=== PATIENT | female | born 1945 | race Caucasian/White ===

== ENCOUNTER 2021-05-08 17:27 | Inpatient (IN) | payer BC, OTHER ==
[~2021-05-08] VITALS: Ht 167.6 cm; Wt 45.0 kg
--- NOTE | 2021-05-08 17:27 | NUR ---
ARBEN Cancino FROM [facility]. PT HAS A FEVER OF 103, CHILLS AND TACHY. PT HAS A BLOOD SUGAR OF 128. PT WAS SENT TO BED 2 AND PLACED ON PULSE OX AND ATTACHED TO MONITOR. WILL CONTINUE TO MONITOR.
[2021-05-08] MEDS ORDERED: IV NS 0.9% 1,000 ML BAG IV ONE (18:00)
[2021-05-08] MEDS ORDERED: ACETAMINOPHEN 650 MG/SUPP.RECT RC ONE ×2 (18:00→18:02)
--- NOTE | 2021-05-08 18:07 | NUR ---
MOVE SHEET SUBMITTED AND CALLED FOR BED.
[2021-05-08 18:09] LABS: BASOPHILS % (AUTO) 0.1 % (0.0-2.0); HEMATOCRIT 39 % (33-45); HEMOGLOBIN 12.8 g/dL (11.5-14.8); LYMPHOCYTES # (AUTO) 0.9 K/uL (0.8-4.8); LYMPHOCYTES % (AUTO) 14.6 % (20.0-44.0); MEAN CORPUSCULAR HGB CONC 33 g/dl (31.0-36.0); MEAN CORPUSCULAR VOLUME 95 fL (82-100); MONOCYTES # (AUTO) 0.2 K/uL (0.1-1.30); MONOCYTES % (AUTO) 3.8 % (2.0-12.0); NEUTROPHILS # (AUTO) 5.1 K/uL (1.8-8.9); NEUTROPHILS % (AUTO) 81.5 % (43.0-81.0); PLATELET COUNT (AUTO) 201 K/uL (150-450); WHITE BLOOD COUNT (AUTO) 6.3 K/uL (4.3-11.0)
[2021-05-08 18:40] LABS: ALANINE AMINOTRANSFERASE 39 U/L (12-78); ALKALINE PHOSPHATASE 55 U/L (46-116); ASPARTATE AMINOTRANSFERASE 50 U/L (15-37); BILIRUBIN,DIRECT 0.2 mg/dL (0.0-0.2); BILIRUBIN,TOTAL 0.7 mg/dL (0.2-1.0); CALCIUM, SERUM 8.4 mg/dL (8.5-10.1); CARBON DIOXIDE 21 mmol/L (21-32); CHLORIDE 104 mmol/L (98-107); CREATININE 1.3 mg/dL (0.6-1.3); GLUCOSE 115 mg/dL (74-106); POTASSIUM 4.5 mmol/L (3.5-5.1); SODIUM SERUM 142 mmol/L (136-145); TOTAL PROTEIN, SERUM 7.1 g/dL (6.4-8.2); UREA NITROGEN, BLOOD 28 mg/dL (7-18)
[2021-05-08] MEDS ORDERED: CEFTRIAXONE 1GM BAG (ER ONLY) 50 ML IV ONE ×2 (18:59→19:00)
[2021-05-08] MEDS ORDERED: IV NS 0.9% 500 ML BAG IV ONE (19:00)
[2021-05-08 19:38] LABS: BILIRUBIN,URINE NEGATIVE (NEGATIVE); COLOR,URINE DARK YELLOW (YELLOW); LEUKOCYTE ESTERASE ,URINE NEGATIVE (NEGATIVE); NITRITE, URINE NEGATIVE (NEGATIVE); PROTEIN,URINE 30 mg/dl (NEGATIVE); UGLUCOSE NEGATIVE (NEGATIVE); UROBILINOGEN,URINE 0.2 EU/dL (0.2)
[2021-05-08 19:56] LABS: RBC,URINE 0-2 /HPF (0-2)
[2021-05-08 19:57] LABS: BACTERIA,URINE Few /HPF (None Seen); MUCUS,URINE Moderate /LPF (None Seen); SQUAMOUS EPITHELIAL CELL,UR Few /HPF (None Seen)
--- NOTE | 2021-05-08 20:44 | NUR ---
SON IS AT BEDSIDE
--- NOTE | 2021-05-08 20:45 | NUR ---
[facility] ([facility]) [phone]
--- NOTE | 2021-05-08 21:29 | NUR ---
CALLED [facility], PAGED DR HERNANDEZ
--- NOTE | 2021-05-08 21:57 | NUR ---
REPORT GIVEN TO ALBARO
--- NOTE | 2021-05-08 21:58 | NUR ---
TRANSFERRING PT TO 118-2
[2021-05-08 22:30] VITALS: BP 149/86
--- NOTE | 2021-05-08 22:30 | NUR ---
INDEPENDENT BEAUTY CONSULTANTPARALEGAL INTERNSHIP NOTES RECEIVED FROM ER THIS 75 Y.O. FEMALE,NON VERBAL,CONTRACTED BOTH LOWER EXTREMITIES,O2 UN USED AT 2L/NC TO KEEP O2 SAT ABOVE 90%,NOTED REDNESS ON SACRAL AREA,BRUISING ON RIGHT LOWER ARM,WITH SALINE LOCK RIGHT AC INTACT AND PATENT,LEFT WRIST SALINE LOCK INTACT AND PATENT.EVENING CARE RENDERED,REPOSITION TO COMFORT,WILL CONTINUE TO MONITOR STATUS.
[2021-05-08] MEDS ORDERED: ENOXAPARIN SODIUM 40 MG/0.4 ML DISP.SYRIN SQ SCH (23:00)
[2021-05-08] MEDS ORDERED: Z GUARD REMEDY 2 OZ OINT TP PRN (23:00)
[2021-05-08] MEDS ORDERED: ONDANSETRON HCL/PF 4 MG/2 ML VIAL IVP PRN (23:00)
[2021-05-08] MEDS ORDERED: MORPHINE SULFATE INJ 2 MG/ML DISP.SYRIN IV PRN (23:00)
[2021-05-08] MEDS ORDERED: DEXTROSE 50%-WATER 50 ML DISP.SYRIN IV PRN (23:00)
[2021-05-08] MEDS ORDERED: ACETAMINOPHEN 650 MG/SUPP.RECT RC PRN (23:00)
[2021-05-08] MEDS ORDERED: ENOXAPARIN SODIUM 30 MG/0.3 ML DISP.SYRIN SQ SCH (23:17)
[2021-05-08] MEDS ORDERED: VANCOMYCIN HCL 0.75 GM in IV D5W 250 ML IV ONE (23:30)
--- NOTE | 2021-05-08 23:30 | NUR ---
MERCHANDISE SUPPORT ASSOCIATE NOTES STARTED ON VANCOMYCIN 0.75GM IV ORDERED.
[2021-05-08] MEDS: IV D5/ 0.9% NACL 1,000 ML IV PRN (23:46)
--- NOTE | 2021-05-08 23:46 | NUR ---
MUSIC THERAPIST [employer] NOTES STARTED ON IVF D5NS AT 75ML/HR RATE,INFUSING ON RIGHT AC VIA IV PUMP ON RIGHT AC.
[2021-05-09] MEDS ORDERED: MEROPENEM 500 MG in IV NS 0.9% 50 ML IV ONE
[2021-05-09] MEDS ORDERED: MEROPENEM 500 MG VIAL IV ONE (00:05)
[2021-05-09] MEDS ORDERED: VANCOMYCIN 1 GM VIAL ONE (00:08)
--- NOTE | 2021-05-09 00:08 | NUR ---
VIAL GAUGER NOTES STARTED ON MERREM 500MG IV ORDERED.
[2021-05-09] MEDS: BLOOD SUGAR DIAGNOSTIC 1 EACH STRIP IN SCH ×5 (00:23→17:21)
--- NOTE | 2021-05-09 00:30 | NUR ---
RESIDENCE MANAGER NOTES GOT ORDER FROM DR HERNANDEZ,PATIENT IS DNR STATUS,WITH POLST ON CHART
--- NOTE | 2021-05-09 00:30 | NUR ---
MIDDLEWARE ARCHITECT NOTES ACCU-CHECK BLOOD SUGAR CHECK 108,NO INSULIN COVERAGE.
[2021-05-09 04:00] VITALS: BP 135/73
--- NOTE | 2021-05-09 05:58 | NUR ---
DRILL RIG OPERATOR HELPER NOTES ACCU-CHECK BLOOD SUGAR CHECK 147,2 UNITS HUMULIN R HELD,NPO STATUS.
--- NOTE | 2021-05-09 06:32 | NUR ---
DIRECTIONAL DRILL OPERATOR NOTES ASLLEP,AROUSABLE TO VERBAL STIMULI,NO SOB NOTED,ALL MEDS HIBENIN NO ACUTE DISTRESS.
[2021-05-09 06:54] LABS: BASOPHILS % (AUTO) 0.3 % (0.0-2.0); EOSINOPHILS % (AUTO) 0.1 % (0.0-6.0); HEMATOCRIT 31 % (33-45); HEMOGLOBIN 10.4 g/dL (11.5-14.8); LYMPHOCYTES # (AUTO) 1.1 K/uL (0.8-4.8); LYMPHOCYTES % (AUTO) 18.4 % (20.0-44.0); MEAN CORPUSCULAR HGB CONC 34 g/dl (31.0-36.0); MEAN CORPUSCULAR VOLUME 95 fL (82-100); MONOCYTES # (AUTO) 0.3 K/uL (0.1-1.30); MONOCYTES % (AUTO) 4.4 % (2.0-12.0); NEUTROPHILS # (AUTO) 4.7 K/uL (1.8-8.9); NEUTROPHILS % (AUTO) 76.8 % (43.0-81.0); PLATELET COUNT (AUTO) 170 K/uL (150-450); RED BLOOD CELL COUNT(AUTO) 3.22 MIL/uL (4.0-5.2); WHITE BLOOD COUNT (AUTO) 6.1 K/uL (4.3-11.0)
[2021-05-09 07:15] LABS: THYROID STIMULATING HORMONE 2.809 uIU/mL (0.358-3.74)
[2021-05-09 07:29] LABS: CALCIUM, SERUM 8.2 mg/dL (8.5-10.1); CREATININE 0.9 mg/dL (0.6-1.3); MAGNESIUM 2.3 mg/dL (1.8-2.4); PHOSPHORUS 3.7 mg/dL (2.5-4.9); POTASSIUM 4.2 mmol/L (3.5-5.1)
[2021-05-09] MEDS ORDERED: ACET-868 PO (07:58)
[2021-05-09] MEDS ORDERED: QUET25TA PO (07:58)
[2021-05-09] MEDS ORDERED: DIVA125C2 PO (07:58)
[2021-05-09] MEDS ORDERED: DONE10TA44 PO (07:58)
[2021-05-09] MEDS ORDERED: MELA3TAB41 PO (07:58)
[2021-05-09] MEDS ORDERED: ATOR10TA PO (07:58)
[2021-05-09] MEDS ORDERED: MEGE400O4 PO (07:58)
[2021-05-09] MEDS ORDERED: POLY15DR40 EACHEYE (07:58)
[2021-05-09] MEDS ORDERED: ALEN70TA80 PO (07:58)
[2021-05-09] MEDS ORDERED: APIX5TAB PO (07:58)
[2021-05-09] MEDS ORDERED: CALC500T63 PO (07:58)
[2021-05-09] MEDS ORDERED: ACET-2605 PO (07:58)
[2021-05-09] MEDS ORDERED: AMIN30LI2 PO (07:58)
[2021-05-09] MEDS ORDERED: VALS80TA2 PO (07:58)
[2021-05-09 08:00] VITALS: BP 126/73
[2021-05-09] MEDS ORDERED: ALENDRONATE 70 MG TABLET PO SCH ×2 (09:00→14:00)
[2021-05-09] MEDS: PANTOPRAZOLE 40 MG VIAL IV SCH (09:00)
[2021-05-09] MEDS: MEROPENEM 500 MG in IV NS 0.9% 50 ML IV SCH (11:51)
[2021-05-09 12:00] VITALS: BP 93/66
[2021-05-09] MEDS ORDERED: MEROPENEM 500 MG in IV NS 0.9% 50 ML IV SCH (13:00)
[2021-05-09] MEDS: APIXABAN 5 MG TABLET PO SCH (17:00)
[2021-05-09] MEDS: MEGESTROL ACETATE SUSP 400 MG/10 ML UDC PO SCH (17:00)
[2021-05-09] MEDS: PROSOURCE / PROSTAT (PYXIS) 30 ML UDC PO SCH (17:00)
[2021-05-09] MEDS: POLYVINYL ALCOHOL 15 ML BOTTLE OP SCH (17:00)
[2021-05-09] MEDS: VANCOMYCIN 500 MG in IV D5W 100ml IV SCH (17:00)
[2021-05-09] MEDS: CALCIUM CARBONATE 500 MG TAB.CHEW PO SCH (17:00)
[2021-05-09] MEDS: IV D5/ 0.9% NACL 1,000 ML IV PRN (17:06)
[2021-05-09 18:59] VITALS: BP 93/66
--- NOTE | 2021-05-09 19:34 | NUR ---
RN CLOSING NOTE PATIENT REMAINS STABLE, AFEBRILE AND NOT IN RESPIRATORY DISTRESS, AWAITING FOR ST FOR SWALLOW EVAL. DUE MEDS GIVEN AND TOLERATED WELL. MORNING AND EVENING CARE DONE. CONTINUES ON O2 VIA NC @ 2L WITH 02 SAT OF 94%. WILL CONTINUE TO MONITOR. CONTINUES ON IVF D5 NS AND TOLERATED WELL.
[2021-05-09 20:00] VITALS: BP_SYST 121; BP_SYST 93; BP_DIAS 66; BP_DIAS 78
[2021-05-09] MEDS: DIVALPROEX SODIUM 125 MG CAP.SPRINK PO SCH (21:00)
[2021-05-09] MEDS: QUETIAPINE FUMARATE 25 MG TABLET PO SCH (22:00)
[2021-05-09] MEDS: ATORVASTATIN 10 MG TABLET PO SCH (22:00)
[2021-05-09] MEDS: DONEPEZIL 5 MG TABLET PO SCH (22:00)
[2021-05-09] MEDS ORDERED: Medication Not On Formulary EA (Melatonin 3 MG) PO SCH (22:00)
[2021-05-10] VITALS: BP 98/68
[2021-05-10] MEDS: MEROPENEM 500 MG in IV NS 0.9% 50 ML IV SCH ×3 (00:30→23:33)
[2021-05-10] MEDS: BLOOD SUGAR DIAGNOSTIC 1 EACH STRIP IN SCH ×4 (00:36→18:05)
[2021-05-10] MEDS: INSULIN REGULAR, HUMAN 100 UNIT/ML 3 ML VIAL SQ PRN ×3 (00:37→23:42)
[2021-05-10 04:00] VITALS: BP 144/70
--- NOTE | 2021-05-10 07:10 | NUR ---
RN CLOSING NOTE PATIENT IN BED REMAINS STABLE, AFEBRILE AND NOT IN SOB/ACUTE RESPIRATORY DISTRESS, ON O2 VIA NC @ 2L WITH OPTIMAL 02 SAT LEVEL, NPO, ST EVALUATION TODAY FOR PROPER DIET, CONTINUES ON IVF D5 NS AND TOLERATED WELL, NO COVERAGE PER SLIDING SCALE, 110 AND 112 BLOOD SUGAR LEVELS, WILL ENDORSE CONTINUITY OF CARE TO ONCOMING NURSE.. ``
[2021-05-10 07:42] LABS: BASOPHILS % (AUTO) 0.2 % (0.0-2.0); EOSINOPHILS % (AUTO) 0.1 % (0.0-6.0); HEMATOCRIT 29 % (33-45); HEMOGLOBIN 9.8 g/dL (11.5-14.8); LYMPHOCYTES # (AUTO) 0.9 K/uL (0.8-4.8); LYMPHOCYTES % (AUTO) 16.9 % (20.0-44.0); MEAN CORPUSCULAR HGB CONC 34 g/dl (31.0-36.0); MEAN CORPUSCULAR VOLUME 94 fL (82-100); MONOCYTES # (AUTO) 0.4 K/uL (0.1-1.30); MONOCYTES % (AUTO) 6.5 % (2.0-12.0); NEUTROPHILS # (AUTO) 4.3 K/uL (1.8-8.9); NEUTROPHILS % (AUTO) 76.3 % (43.0-81.0); PLATELET COUNT (AUTO) 172 K/uL (150-450); RED BLOOD CELL COUNT(AUTO) 3.06 MIL/uL (4.0-5.2); WHITE BLOOD COUNT (AUTO) 5.6 K/uL (4.3-11.0)
--- NOTE | 2021-05-10 07:46 | NUR ---
RN OPENING NOTE RECEIVE REPORT FROM OUT GOING NURSE. PATIENT IN STABLE CONDITION AT TIME OF REPORT. a/O X1. PATIENT IS NPO UNTIL ST IS DONE. WILL FOLLOW UP WITH AM LABS. PROPER ISOLATION PRECAUTION IN PLACE. ALL SAFETY MEASURE IN PLACE. BED ON LOWEST POSITION WITH HOB ELEVATED WITH 3 SIDE RAIL UP. CALL LIGHT WITHIN REACH. WILL CONTINUE TO MONITOR.
[2021-05-10 08:00] VITALS: BP 146/79
[2021-05-10] MEDS: MEGESTROL ACETATE SUSP 400 MG/10 ML UDC PO SCH ×2 (08:42→16:24)
[2021-05-10] MEDS: VALSARTAN 80 MG TABLET PO SCH (08:42)
[2021-05-10] MEDS: POLYVINYL ALCOHOL 15 ML BOTTLE OP SCH ×3 (08:42→16:25)
[2021-05-10] MEDS: DIVALPROEX SODIUM 125 MG CAP.SPRINK PO SCH ×2 (08:43→21:33)
[2021-05-10] MEDS: CALCIUM CARBONATE 500 MG TAB.CHEW PO SCH ×3 (08:43→16:23)
[2021-05-10] MEDS: PANTOPRAZOLE 40 MG VIAL IV SCH (08:43)
[2021-05-10 08:44] LABS: CREATININE 0.9 mg/dL (0.6-1.3); PHOSPHORUS 2.8 mg/dL (2.5-4.9)
[2021-05-10] MEDS: APIXABAN 5 MG TABLET PO SCH ×2 (08:46→16:24)
[2021-05-10] MEDS: PROSOURCE / PROSTAT (PYXIS) 30 ML UDC PO SCH ×2 (09:00→17:56)
[2021-05-10] MEDS: VANCOMYCIN 500 MG in IV D5W 100ml IV SCH (10:08)
[2021-05-10] MEDS: IV D5/ 0.9% NACL 1,000 ML IV PRN (10:08)
--- NOTE | 2021-05-10 11:16 | NUR ---
RN NOTE PATIENT PULL OUT IV ON LEFT WRIST. PRESSURE DRESSING WAS PLACED.
[2021-05-10 12:00] VITALS: BP 145/68
[2021-05-10] MEDS: ENSURE ENLIVE 237 ML LIQUID (VANILLA) PO SCH ×2 (12:40→17:44)
[2021-05-10 16:00] VITALS: BP 117/72
--- NOTE | 2021-05-10 18:19 | NUR ---
RN CLOSING NOTE PATIENT REMAIN IN STABLE CONDITION WITH NO SIGN OF DISTRESS THROUGH OUT SHIFT. ON ROOM AIR WITH O2 SAT 95% AND ABOVE. SWALLOW EVALUATION WAS DONE BY SPEECH THERAPIST. PUREED DIET AND THICKENER WAS RECOMMENDED. DIET ORDER IN PLACE. CRUSH MEDICATIONS AND GIVE WITH APPLE SAUCE. RECEIVING IV HYDRATION WITH D5 NS @75ML/HR. PATIENT PULL OUT IV ON LEFT HAND. PRESSURE DRESSING WAS APPLY. FELIPE ISOLATION PRECAUTION IN PLACE. ALL SAFETY MEASURE IN PLACE. BED ON THE LOWEST POSITION WITH HOB ELEVATED AND 3 SIDE RAIL UP. CALL LIGHT WITHIN REACH. WILL CONTINUE TO MONITOR AND GIVE REPORT TO ON COMING NURSE.
--- NOTE | 2021-05-10 19:35 | NUR ---
1934 Report received from PATRICK Kendrick for transfer of care with questions answered.
[2021-05-10 20:00] VITALS: BP 155/85
[2021-05-10] MEDS: DONEPEZIL 5 MG TABLET PO SCH (21:35)
[2021-05-10] MEDS: ATORVASTATIN 10 MG TABLET PO SCH (21:36)
[2021-05-10] MEDS: QUETIAPINE FUMARATE 25 MG TABLET PO SCH (21:37)
--- NOTE | 2021-05-10 23:40 | NUR ---
2340 BS check done 124mg/dl no coverage given per sliding scale.
[2021-05-11] VITALS (7 sets, daily range): BP systolic 155–166; BP diastolic 36–88
--- NOTE | 2021-05-11 03:00 | NUR ---
0300 Patient awake and not in any distress. Cont. to tolerate O2 at 2L per NC. Turned and repositioned for skin management and comfort. Kept clean and dry. Call light placed within reach.
[2021-05-11] MEDS: IV D5/ 0.9% NACL 1,000 ML IV PRN ×2 (03:29→23:56)
[2021-05-11] MEDS: VANCOMYCIN 500 MG in IV D5W 100ml IV SCH (04:49)
[2021-05-11 04:56] LABS: BASOPHILS % (AUTO) 0.3 % (0.0-2.0); EOSINOPHILS % (AUTO) 0.1 % (0.0-6.0); HEMATOCRIT 27 % (33-45); LYMPHOCYTES # (AUTO) 1.3 K/uL (0.8-4.8); LYMPHOCYTES % (AUTO) 21.5 % (20.0-44.0); MEAN CORPUSCULAR HGB CONC 34 g/dl (31.0-36.0); MEAN CORPUSCULAR VOLUME 93 fL (82-100); MONOCYTES # (AUTO) 0.4 K/uL (0.1-1.30); MONOCYTES % (AUTO) 7.4 % (2.0-12.0); NEUTROPHILS # (AUTO) 4.1 K/uL (1.8-8.9); NEUTROPHILS % (AUTO) 70.7 % (43.0-81.0); PLATELET COUNT (AUTO) 191 K/uL (150-450); RED BLOOD CELL COUNT(AUTO) 2.85 MIL/uL (4.0-5.2); WHITE BLOOD COUNT (AUTO) 5.8 K/uL (4.3-11.0)
[2021-05-11 05:07] LABS: CALCIUM, SERUM 7.5 mg/dL (8.5-10.1); CREATININE 0.8 mg/dL (0.6-1.3); PHOSPHORUS 2.8 mg/dL (2.5-4.9); POTASSIUM 3.1 mmol/L (3.5-5.1)
[2021-05-11] MEDS: BLOOD SUGAR DIAGNOSTIC 1 EACH STRIP IN SCH ×4 (06:12→18:03)
[2021-05-11] MEDS: INSULIN REGULAR, HUMAN 100 UNIT/ML 3 ML VIAL SQ PRN ×2 (06:12→12:02)
--- NOTE | 2021-05-11 06:13 | NUR ---
Blood Sugar check done at this time 113 mg/dl no coverage given per sliding scale.
--- NOTE | 2021-05-11 06:20 | NUR ---
0620 AM care rendered. Linens changed. Large BM soft in consistency noted. Good pericare rendered. Turned and repositioned for skin management and comfort. Call light placed within reach.
--- NOTE | 2021-05-11 07:16 | NUR ---
NURSE OPENING NOTE PATIENT IN STABLE CONDITION AT TIME OF REPORT FROM WELL DIGGER NURSE. PATIENT RECEIVING 3L OF OXYGEN VIA NC. O2 SAT 95%. RECEIVING D5 NS @55ML/HR. WILL FOLLOW UP WITH AM LABS AND DOCTORS ORDERS. PROPER PRECAUTION IN PLACE. ALL SAFETY MEASURE IN PLACE. BED ON LOWEST POSITION WITH HOB ELEVATED AND 3 SIDE RAIL UP. CALL LIGHT WITHIN REACH. WILL CONTINUE TO MONITOR.
[2021-05-11] MEDS: MEGESTROL ACETATE SUSP 400 MG/10 ML UDC PO SCH ×2 (08:38→16:12)
[2021-05-11] MEDS: CALCIUM CARBONATE 500 MG TAB.CHEW PO SCH ×3 (08:38→16:13)
[2021-05-11] MEDS: DIVALPROEX SODIUM 125 MG CAP.SPRINK PO SCH ×2 (08:39→21:58)
[2021-05-11] MEDS: VALSARTAN 80 MG TABLET PO SCH (08:39)
[2021-05-11] MEDS: PANTOPRAZOLE 40 MG TABLET.DR PO SCH (08:43)
[2021-05-11] MEDS: APIXABAN 5 MG TABLET PO SCH ×2 (08:46→16:15)
[2021-05-11] MEDS: POLYVINYL ALCOHOL 15 ML BOTTLE OP SCH ×3 (08:48→16:14)
[2021-05-11] MEDS: ENSURE ENLIVE 237 ML LIQUID (VANILLA) PO SCH ×3 (08:49→18:04)
[2021-05-11] MEDS: PROSOURCE / PROSTAT (PYXIS) 30 ML UDC PO SCH ×2 (08:54→16:13)
[2021-05-11] MEDS ORDERED: POTASSIUM CHLORIDE 20 MEQ TAB.PRT.SR PO SCH (09:30)
[2021-05-11] MEDS: MEROPENEM 500 MG in IV NS 0.9% 50 ML IV SCH (11:15)
--- NOTE | 2021-05-11 13:14 | NUR ---
per [facility] covid negative pcr.
--- NOTE | 2021-05-11 18:52 | NUR ---
RN CLOSING NOTE PATIENT REMAIN IN STABLE CONDITION WITH NO SIGN OF DISTRESS TROUGH OUT SHIFT. REMAIN ON OXYGEN VIA NC AT 3L/MIN. O2 SAT 95% AND ABOVE. PATIENT IS NONVERBAL. CONTINUE PUREE DIET WITH THICKENER IN FLUID. CRUSH MEDS AND GIVE WITH APPLE SAUCE. TOOK ALL MEDICATIONS DURING SHIFT. RECEIVING IV HYDRATION WITH D5NS @75ML/HR. PCR RESULT IS NEGATIVE. PATIENT TURN AND REPOSITIONED PER PROTOCOL. PROPER INSOLATION PRECAUTION IN PLACE. ALL SAFETY MEASURE IN PLACE. BED ON LOWEST POSITION WITH HOB ELEVATED AND 3 SIDE RAIL UP. CALL LIGHT WITHIN REACH. WILL CONTINUE TO MONITOR AND GIVE REPORT TO SINGLE PASS SOIL STABILIZER OPERATOR NURSE.
--- NOTE | 2021-05-11 19:45 | NUR ---
RN CLOSING NOTE PATIENT IN BED RESTING WITH NO SIGNS OF DISTRESS OR PAIN, PATIENT IS NONVERBAL.PATIENT ON 4L NASAL CANULA, WITH NO RESPIRATORY DISTRESS OR LABORED BREATHING. A/O X 1 TO NAME. IV IN R AC 18 GAUGE, PATENT AND INTACT, FLUSHED. ALL ENVIRONMENTAL MEASURES TAKEN, BED IN LOW POSITION, CALL LIGHT IN REACH, HOB ELEVATED, 3 SIDE RAILS UP. Addendum: 05/12/21 at 0700 by Jessie Blevins RN RN OPENING NOTES - ( NOT CLOSING NOTES)
[2021-05-11] MEDS: DONEPEZIL 5 MG TABLET PO SCH (21:51)
[2021-05-11] MEDS: ATORVASTATIN 10 MG TABLET PO SCH (21:58)
[2021-05-11] MEDS: QUETIAPINE FUMARATE 25 MG TABLET PO SCH (21:58)
[2021-05-12] VITALS: BP 135/85
[2021-05-12] MEDS: MEROPENEM 500 MG in IV NS 0.9% 50 ML IV SCH ×2 (00:45→11:36)
[2021-05-12] MEDS: BLOOD SUGAR DIAGNOSTIC 1 EACH STRIP IN SCH ×3 (00:55→11:55)
[2021-05-12] MEDS: INSULIN REGULAR, HUMAN 100 UNIT/ML 3 ML VIAL SQ PRN ×3 (00:56→11:57)
[2021-05-12 04:00] VITALS: BP 142/83
--- NOTE | 2021-05-12 06:00 | NUR ---
RN CLOSING NOTE PATIENT REMAIN IN STABLE CONDITION WITH NO SIGN OF DISTRESS THROUGHOUT THE SHIFT. REMAIN ON OXYGEN VIA NC AT 3L/MIN. O2 SAT 95% AND ABOVE. PATIENT IS NONVERBAL. CONTINUE PUREE DIET WITH THICKENER IN FLUID. CRUSH MEDS AND GIVE WITH APPLE SAUCE. TOOK ALL MEDICATIONS DURING SHIFT. RECEIVING IV HYDRATION WITH D5NS @75ML/HR. PCR RESULT IS NEGATIVE. PATIENT TURN AND REPOSITIONED PER PROTOCOL. PROPER INSOLATION PRECAUTION IN PLACE. ALL SAFETY MEASURE IN PLACE. BED ON LOWEST POSITION WITH HOB ELEVATED AND 3 SIDE RAIL UP.ACCU CHECKS DONE ORDERED, NO INSULIN ADMINISTERED. WILL ENDORSE PATIENT CARE TO ONCOMING AM SHIFT.
--- NOTE | 2021-05-12 07:20 | NUR ---
RN NOTES, RECEIVED PATIENT FOR CONTINUATION OF CARE, PATIENT ON 2LPM VIA NC WITH OPTIMAL O2 SAT LEVEL, NSR ON TELEMONITOR, PATIENT AWAKE, UNABLE TO FOLLOW COMMANDS, NON VERBAL, PATIENT WITH RIGHT AC IV LINE DISLODGED, AND NOTED WITH SWOLLEN ARM, ELEVATED EXTREMITY, WITH CONTINUE TO MONITOR CLOSELY.
[2021-05-12] MEDS: PANTOPRAZOLE 40 MG TABLET.DR PO SCH (07:34)
[2021-05-12 08:00] VITALS: BP 152/96
[2021-05-12 08:12] LABS: BASOPHILS % (AUTO) 0.3 % (0.0-2.0); EOSINOPHILS % (AUTO) 0.6 % (0.0-6.0); HEMATOCRIT 27 % (33-45); HEMOGLOBIN 9.1 g/dL (11.5-14.8); LYMPHOCYTES # (AUTO) 1.1 K/uL (0.8-4.8); MEAN CORPUSCULAR HGB CONC 34 g/dl (31.0-36.0); MEAN CORPUSCULAR VOLUME 94 fL (82-100); MONOCYTES # (AUTO) 0.4 K/uL (0.1-1.30); MONOCYTES % (AUTO) 9.7 % (2.0-12.0); NEUTROPHILS # (AUTO) 2.6 K/uL (1.8-8.9); NEUTROPHILS % (AUTO) 62.4 % (43.0-81.0); PLATELET COUNT (AUTO) 227 K/uL (150-450); RED BLOOD CELL COUNT(AUTO) 2.87 MIL/uL (4.0-5.2); WHITE BLOOD COUNT (AUTO) 4.2 K/uL (4.3-11.0)
[2021-05-12 08:25] LABS: CALCIUM, SERUM 7.4 mg/dL (8.5-10.1); CREATININE 0.6 mg/dL (0.6-1.3); MAGNESIUM 2.1 mg/dL (1.8-2.4); PHOSPHORUS 2.8 mg/dL (2.5-4.9); POTASSIUM 3.2 mmol/L (3.5-5.1)
[2021-05-12] MEDS: DIVALPROEX SODIUM 125 MG CAP.SPRINK PO SCH (09:27)
[2021-05-12] MEDS: MEGESTROL ACETATE SUSP 400 MG/10 ML UDC PO SCH ×2 (09:27→16:23)
[2021-05-12] MEDS: CALCIUM CARBONATE 500 MG TAB.CHEW PO SCH ×3 (09:29→16:23)
[2021-05-12] MEDS: APIXABAN 5 MG TABLET PO SCH ×2 (09:29→16:24)
[2021-05-12] MEDS: PROSOURCE / PROSTAT (PYXIS) 30 ML UDC PO SCH ×2 (09:30→16:26)
[2021-05-12] MEDS: VALSARTAN 80 MG TABLET PO SCH (09:33)
[2021-05-12] MEDS: ENSURE ENLIVE 237 ML LIQUID (VANILLA) PO SCH ×3 (09:37→16:25)
[2021-05-12] MEDS: POLYVINYL ALCOHOL 15 ML BOTTLE OP SCH ×3 (09:38→16:25)
[2021-05-12] MEDS ORDERED: POTASSIUM CHLORIDE 20 MEQ TAB.PRT.SR PO ONE (11:00)
[2021-05-12] MEDS ORDERED: POTASSIUM CHLORIDE 20 MEQ POWDER PACKET PO ONE (11:00)
--- NOTE | 2021-05-12 11:06 | NUR ---
SUPERVISOR WET END OPENING NOTE RECEIVED PT IN STABLE CONDITION AT TIME OF REPORT FROM RAIL TRACK LAYER NURSE. PT IS A/O X2. PT RECEIVING 3L OF OXYGEN VIA NC. O2 SAT 95%. RECEIVING D5 NS @55ML/HR. PT. IS NON VERBAL BUT WILL RESPOND TO COMMANDS. ALL SAFETY MEASURES IN PLACE. BED ON LOWEST LOCKED POSITION WITH HOB ELEVATED AND SIDE RAIL UP X 3. CALL LIGHT WITHIN REACH. WILL CONTINUE TO MONITOR THROUGHOUT SHIFT.
[2021-05-12 12:00] VITALS: BP 138/71
--- NOTE | 2021-05-12 17:00 | NUR ---
POST ANESTHESIA NURSE NOTES, PATIENT LEAVING AT THIS TIME VIA [place] IN COMPANY OF 2 FORK LIFT TRUCK OPERATOR, SON A BEDSIDE AND LEFT A WITH THEM, PATIENT AWAKE, NONVERBAL, ON 3LPM VIA NC, WITH 02 100% AT THIS TIME, PATIENT IS GOING TO [facility], REPORT GIVEN ALREADY TO RN TELEVISION TUBE INSPECTOR, PATIENT HAS NO BELONGINGS, VS 142/70, 80, 20, 98.1, 100% AT 3LPM, PT LEFT IN STABLE CONDITION, WILL CONT IV ANTIBIOTICS AT LONG-TERM.
== END 2021-05-12 16:49 | DRG 871 ==
LOC: ER 17:32 → TELE1 21:37
PROVIDERS: ATTEND Nurse Practitioner Family
DX: A41.9 Sepsis, unspecified organism (principal); J69.0 Pneumonitis due to inhalation of food and vomit; E04.1 Nontoxic single thyroid nodule; I10 Essential (primary) hypertension; I25.2 Old myocardial infarction; Z20.822 Contact with and (suspected) exposure to COVID-19; Z66 Do not resuscitate; Z85.828 Personal history of other malignant neoplasm of skin; L89.90 Pressure ulcer of unspecified site, unspecified stage; R65.20 Severe sepsis without septic shock; F41.9 Anxiety disorder, unspecified; K80.20 Calculus of gallbladder without cholecystitis without obstruction; G30.9 Alzheimer's disease, unspecified; F02.80 Dementia in other diseases classified elsewhere, unspecified severity, without behavioral disturbance, psychotic disturbance, mood disturbance, and anxiety; R91.1 Solitary pulmonary nodule; F32.A Depression, unspecified
CPT/HCPCS: 36415; 71045-TC; 80048-TC; 80061-TC; 80076-TC; 80202-TC; 81001; 82962-TC; 83605-TC; 83735-TC; 84100-TC; 84443-TC; 84484-TC; 85025-TC; 85730-TC; 87040-TC; 87081-TC; 87086-TC; 92526; 92611-TC; C9113; G0378; J0696; J1650; J1815; J2185; J3370; J7030; J7040; J7042; J7060; U0003